=== PATIENT | male | born 1970 | race Caucasian/White ===

== ENCOUNTER → 2019-07-20 15:09 | Outpatient (CLI) | payer BC, SELFPAY ==
--- NOTE | 2019-07-20 | DI.MRI.S_ITS ---
PROCEDURE: MR HEAD/BRAIN WO CON INDICATIONS: Agnosia TECHNIQUE: Noncontrast axial T1 spin echo, axial T2 fast spin echo, sagittal and axial FLAIR, coronal T2 fast spin echo, axial gradient echo, axial diffusion and ADC through the brain. COMPARISON: None. FINDINGS: Image quality: Excellent. CSF Spaces: Basal cisterns are patent. No extra-axial fluid collections. Ventricles are normal in size and shape. Brain: No intracranial masses or hemorrhage. Richardson/white matter interface is normal. Brainstem appears normal. Diffusion-weighted images demonstrate no acute ischemic insult. No chronic ischemic insults. Normal intravascular flow voids are present. Skull and face: Calvarium has normal marrow signal. Orbits appear normal. Sinuses: Sinuses and mastoids are clear. IMPRESSION: 1. No intracranial disease process. 2. No abnormal intracranial mass or mass effect. 3. No abnormal intracranial signal. Dictated by: Makenna Allan MD, PhD on 07/20/2019 at 16:05 Approved by: Makenna Allan MD, PhD on 07/20/2019 at 16:09
== END ==
PROVIDERS: PCP Family Medicine; Visit Provider Family Medicine
DX: R48.1 Agnosia (principal)
CPT/HCPCS: 70551